=== PATIENT | male | born 1975 | race Caucasian/White ===

== ENCOUNTER 2016-03-31 20:31 | Emergency (ER) | payer BC, OTHER ==
[2016-03-31 20:42] VITALS: BP 135/77
--- NOTE | 2016-03-31 20:52 | UC ---
Skin Complaint HPI - History of Current Complaint Chief Complaint: UCRas Time Seen by Provider: 03/31/16 20:45 Stated Complaint: RASH Hx Obtained From: Patient Onset/Duration: Gradual Onset, Lasting Weeks - 2, Worse Since - last few days. Timing: Constant Onset Severity: Mild Current Severity: Severe Location: Discrete - in friction areas behind the legs, inner arms and sides of the abdomen Character: Pruritus, Hives, Redness, Raised Aggravating: Showering Alleviating: Nothing Associated Signs & Symptoms: Positive: Rash. Negative: Diaphoresis, Difficulty Breathing, Fever, Chills, Hoarseness, Throat Tightening Related History: Other: - Just got over a cold - Allergy/Home Medications Allergies/Adverse Reactions: Allergies Allergy/AdvReac Type Severity Reaction Status Date / Time No Known Allergies Allergy Verified 03/31/16 20:42 Review of Systems Skin: Rash Respiratory: Cough All Other Systems Reviewed And Are Negative: Yes PMH/Surg Hx/FS Hx/Imm Hx Previously Healthy: Yes Cardiovascular History Of: Denies: Hypertension Respiratory History Of: Denies: Asthma GI/ History Of: Denies: Gastroesophageal Reflux - Surgical History Surgical History: Yes Surgery Procedure, Year, and Place: right inguinal repair - Family History Known Family History: Positive: Cardiac Disease, Hypertension, Diabetes - Social History Occupation: Employed Full-time Lives: With Family Alcohol Use: Occasionally Substance Use Type: None Smoking Status (MU): Never Smoked Tobacco Physical Exam Triage Information Reviewed: Yes Appearance: Well-Appearing, No Pain Distress, Well-Nourished Vital Signs: Initial Vital Signs Temp 99.0 F 03/31/16 20:36 Pulse 74 03/31/16 20:36 Resp 14 03/31/16 20:36 BP 135/77 03/31/16 20:36 Pulse Ox 98 03/31/16 20:36 Vital Signs Reviewed: Yes Eyes: Positive: Conjunctiva Clear ENT: Positive: Pharynx normal, TMs normal Neck exam: Normal Respiratory Exam: Normal Cardiovascular Exam: Normal Musculoskeletal Exam: Normal Neurological Exam: Normal Psychological Exam: Normal Skin: Positive: rashes - hives on the inside of the arms/ lower lateral sides of the abdomen Course/Dx - Differential Diagnoses - Skin Complaint Differential Diagnoses: Cellulitis, Contact Dermatitis, Urticaria - Diagnoses Provider Diagnoses: Acute urticaria Discharge - Discharge Plan Condition: Stable Disposition: HOME Prescriptions: predniSONE TAB* [Deltasone TAB*] 20 mg PO DAILY #18 tab Patient Education Materials: Urticaria (ED), Prednisone (By mouth) Images Front/Back of Body, Lg (Kane): 1 - hives bilateral 2 - hives bilaterally 3 - hives bilaterally 4 - no dermagraphism
[2016-03-31] MEDS ORDERED: predniSONE TAB* 20 MG PO ONE (21:02)
== END 2016-03-31 21:14 | disposition home or self-care (01) ==
LOC: UCCORT 20:31
DX: L50.9 Urticaria, unspecified (principal)
CPT/HCPCS: 99202; G0463; J7512

== ENCOUNTER 2017-03-25 13:25 | Emergency (ER) | payer BC ==
[2017-03-25 15:18] VITALS: BP 158/81
--- NOTE | 2017-03-25 15:38 | UC ---
Hip/Pelvis Pain - HPI Summary HPI Summary: left groin strain, pain and limp for 1 week - History Of Current Complaint Chief Complaint: UCLowerExtremity Stated Complaint: LEFT LEG PAIN Time Seen by Provider: 03/25/17 15:30 Hx Obtained From: Patient Onset/Duration: Sudden Onset, Lasting Weeks - 1 Timing: Constant Severity Initially: Moderate Severity Currently: Moderate Location: Discrete At: Character Of Pain: Aching, Stiffness Aggravating Factor(s): Movement, Weight Bearing Alleviating Factor(s): Nothing Associated Signs And Symptoms: Positive: Negative - Allergies/Home Medications Allergies/Adverse Reactions: Allergies Allergy/AdvReac Type Severity Reaction Status Date / Time No Known Allergies Allergy Verified 03/25/17 15:18 Home Medications: Home Medications Cyclobenzaprine TAB* [Flexeril 10 MG TAB*] 10 mg PO TID PRN 03/25/17 [History Confirmed 03/25/17] PMH/Surg Hx/FS Hx/Imm Hx Previously Healthy: Yes - Surgical History Surgical History: Yes Surgery Procedure, Year, and Place: right inguinal repair - Family History Known Family History: Positive: Cardiac Disease, Hypertension, Diabetes - Social History Occupation: Employed Full-time Lives: With Family Alcohol Use: Rare Substance Use Type: None Smoking Status (MU): Never Smoked Tobacco Review of Systems Constitutional: Negative Skin: Negative Eyes: Negative ENT: Negative Respiratory: Negative Cardiovascular: Negative Gastrointestinal: Negative Genitourinary: Negative Motor: Negative Neurovascular: Negative Musculoskeletal: Myalgia - pain right oblique from groin down leg toward lateral knee Neurological: Negative Psychological: Negative Is Patient Immunocompromised?: No All Other Systems Reviewed And Are Negative: Yes Physical Exam Triage Information Reviewed: Yes Appearance: Well-Appearing, Well-Nourished, Pain Distress - mild Vital Signs: Initial Vital Signs Temp 98.8 F 03/25/17 15:13 Pulse 60 03/25/17 15:13 Resp 20 03/25/17 15:13 BP 158/81 03/25/17 15:13 Pulse Ox 99 03/25/17 15:13 Vital Signs Reviewed: Yes Eye Exam: Normal Eyes: Positive: Conjunctiva Clear ENT Exam: Normal ENT: Positive: Normal ENT inspection. Negative: Nasal congestion, Trismus, Muffled voice, Hoarse voice, Dental tenderness, Sinus tenderness Dental Exam: Normal Neck exam: Normal Neck: Positive: Supple, Nontender Respiratory Exam: Normal Respiratory: Positive: Chest non-tender, No respiratory distress, No accessory muscle use Cardiovascular Exam: Normal Cardiovascular: Positive: RRR, Brisk Capillary Refill Abdominal Exam: Normal Abdomen Description: Positive: Nontender, No Organomegaly, Soft. Negative: CVA Tenderness (R), CVA Tenderness (L) Musculoskeletal Exam: Normal Musculoskeletal: Positive: Strength Intact, ROM Intact - passive, active rom in hip limited by pain, No Edema, Other: - pain along satorius muscle Neurological Exam: Normal Neurological: Positive: Alert Psychological Exam: Normal Skin Exam: Normal Hip Injury Course/Dx - Course Course Of Treatment: pain control muscle relaxer, follow with physical therapy and MD - Differential Dx/Diagnosis Provider Diagnoses: left groin Muscle strain Discharge - Discharge Plan Condition: Stable Disposition: HOME Prescriptions: Cyclobenzaprine TAB* [Flexeril 10 MG TAB*] 10 mg PO TID PRN #20 tab PRN Reason: muscle pain Hydrocodone-Acetaminophen [Hydrocodone/Acetaminophen 5-325 mg] 1 tab PO Q6HR PRN #15 tab MDD 4 PRN Reason: pain Meloxicam(NF) [Mobic(NF)] 7.5 mg PO BID #30 tab Patient Education Materials: Groin Strain (ED), Hypertension (ED) Referrals: Shiv Lewis MD [Medical Doctor] - 1 Week Salty Chung MD [Primary Care Provider] - 2 Weeks
== END 2017-03-25 16:09 | disposition home or self-care (01) ==
LOC: UCCORT 13:25
DX: S39.011A Strain of muscle, fascia and tendon of abdomen, initial encounter (principal); X58.XXXA Exposure to other specified factors, initial encounter; Y93.9 Activity, unspecified; Y92.9 Unspecified place or not applicable
CPT/HCPCS: 99212; G0463